=== PATIENT | female | born 1990 | race Caucasian/White ===

== ENCOUNTER 2018-06-02 23:10 | Inpatient (IN) | payer MEDICAID ==
[~2018-06-02] VITALS: Ht 149.9 cm; Wt 70.3 kg
[~2018-06-02 23:10] MED LIST: ONDA4TAB10 PO; OXYC-302 PO
[2018-06-02 23:50] VITALS: BP 133/76
[2018-06-03] MEDS ORDERED: OXYTOCIN 30U/ 0.9% NaCL 500ML 500 ML IV SCH ×2 (01:03→03:54)
[2018-06-03] MEDS ORDERED: LACTATED RINGERS 1,000 ML IV SCH ×3 (01:03→03:54)
[2018-06-03] MEDS ORDERED: OXYTOCIN 30U/ 0.9% NaCL 500ML 500 ML IV ONE (01:03)
[2018-06-03] MEDS ORDERED: OXYTOCIN 30U/ 0.9% NaCL 500ML 500 ML IV PRN (01:03)
[2018-06-03] MEDS ORDERED: OXYTOCIN 30U/ 0.9% NaCL 500ML 500 ML ONE (01:23)
[2018-06-03] MEDS ORDERED: METOCLOPRAMIDE 5 MG/ML, 2ML ONE (01:23)
[2018-06-03] MEDS ORDERED: SODIUM CITRATE/CITRIC ACID 30 ML UDC ONE (01:23)
[2018-06-03] MEDS ORDERED: LACTATED RINGERS 1,000 ML IVBOLUS ONE (01:30)
[2018-06-03] MEDS ORDERED: METOCLOPRAMIDE 5 MG/ML, 2ML IV ONE (01:30)
[2018-06-03] MEDS ORDERED: SODIUM CITRATE/CITRIC ACID 30 ML UDC PO ONE (01:30)
[2018-06-03] MEDS ORDERED: RHOGAM FROM BLOOD BANK 1 NOTE EA IM/IV PRN (01:30)
[2018-06-03 01:33] LABS: BASOPHILS # (AUTO) 0.02 x10^3/uL (0-0.1); BASOPHILS % (AUTO) 0 % (0-1); EOSINOPHILS # (AUTO) 0.04 x10^3/uL (0-0.4); EOSINOPHILS % (AUTO) 0 % (1-7); LYMPHOCYTES # (AUTO) 1.46 x10^3/uL (1-3.4); LYMPHOCYTES % (AUTO) 16 % (22-44); MD NO; MEAN CORPUSCULAR HEMOGLOBIN 31.8 pg (27.0-34.8); MEAN CORPUSCULAR HGB CONC 34.5 g/dL (32.4-35.8); MEAN CORPUSCULAR VOLUME 92.2 fL (80-100); MEAN PLATELET VOLUME 7.8 fL (7.4-10.4); MONOCYTES # (AUTO) 0.34 x10^3/uL (0.2-0.8); MONOCYTES % (AUTO) 4 % (2-9); NEUTROPHILS # (AUTO) 7.31 x10^3/uL (1.8-6.8); NEUTROPHILS % (AUTO) 80 % (42-75); PLATELET COUNT 255 x10^3/uL (130-400); RED BLOOD COUNT 3.79 x10^6/uL (3.82-5.3); RED CELL DISTRIBUTION WIDTH 13.4 % (9.6-15.2)
[2018-06-03 01:44] LABS: AMPHETAMINE SCREEN, URINE Negative (Negative); BARBITURATE SCREEN, URINE Negative (Negative); BENZODIAZEPINE SCREEN, URINE Negative (Negative); CANNABINOID SCREEN, URINE Negative (Negative); COCAINE SCREEN, URINE Negative (Negative); METHADONE SCREEN, URINE Negative (Negative); OPIATE SCREEN, URINE Negative (Negative)
[2018-06-03] MEDS ORDERED: OXYTOCIN 10 UNITS/ML, 1ML ONE (02:00)
[2018-06-03] MEDS ORDERED: SUCCINYLCHOLINE 20 MG/ML, 10ML ONE (02:00)
[2018-06-03] MEDS ORDERED: CEFAZOLIN 1,000 MG ONE (02:00)
[2018-06-03] MEDS ORDERED: PROPOFOL 10 MG/ML, 20ML ONE (02:00)
[2018-06-03] MEDS ORDERED: FENTANYL PF 250 MCG/5ML ONE (02:00)
[2018-06-03] MEDS ORDERED: ONDANSETRON 2MG/ML, 2ML ONE (02:00)
[2018-06-03] MEDS ORDERED: EPHEDRINE 50 MG/ML, 1ML ONE (02:00)
[2018-06-03] MEDS ORDERED: LIDOCAINE-MPF 2% ,5ML ONE (02:00)
[2018-06-03] MEDS ORDERED: PHENYLEPHRINE 10 MG/ML ONE (02:00)
[2018-06-03 02:08] LABS: INTERNATIONAL NORMALIZED RATIO 0.87 (0.93-1.1); PROTHROMBIN TIME 9.3 Seconds (9.6-11.5)
[2018-06-03] MEDS ORDERED: HYDROmorphone 2 MG/ML, 1ML ONE ×2 (02:49→03:49)
[2018-06-03] MEDS ORDERED: FENTANYL PF 100 MCG/2ML ONE ×2 (03:07→03:49)
[2018-06-03] MEDS: LACTATED RINGERS 1,000 ML IV SCH ×3 (03:54→19:54)
[2018-06-03] MEDS ORDERED: MISOPROSTOL 200 MCG TABLET PR PRN (04:00)
[2018-06-03] MEDS ORDERED: morphine SULFATE 10 MG/ML, 1ML IVPush PRN ×2 (04:00)
[2018-06-03] MEDS ORDERED: ACETAMINOPHEN 325 MG TABLET PO PRN (04:00)
[2018-06-03] MEDS ORDERED: OXYcodone/APAP 5/325MG TABLET PO PRN (04:00)
[2018-06-03] MEDS ORDERED: ONDANSETRON 2MG/ML, 2ML IV PRN (04:00)
[2018-06-03] MEDS ORDERED: CARBOPROST TROMETHAMINE 250 MCG/ML, 1ML IM PRN (04:00)
[2018-06-03] MEDS ORDERED: morphine SULFATE 10 MG/ML, 1ML ONE ×2 (06:35→10:06)
[2018-06-03] MEDS: PRENATAL VIT/IRON/FA 1 EACH TABLET PO SCH (09:00)
[2018-06-03] MEDS ORDERED: METHYLERGONOVINE 0.2 MG/ML IM ONE (10:38)
[2018-06-03 12:27] VITALS: BP 117/67
[2018-06-03] MEDS ORDERED: KETOROLAC 30 MG/1 ML ONE ×2 (13:50→20:23)
[2018-06-03 15:20] LABS: BASOPHILS # (AUTO) 0.05 x10^3/uL (0-0.1); BASOPHILS % (AUTO) 1 % (0-1); EOSINOPHILS % (AUTO) 0 % (1-7); LYMPHOCYTES # (AUTO) 1.14 x10^3/uL (1-3.4); LYMPHOCYTES % (AUTO) 12 % (22-44); MD NO; MEAN CORPUSCULAR HEMOGLOBIN 31.4 pg (27.0-34.8); MEAN CORPUSCULAR HGB CONC 34.2 g/dL (32.4-35.8); MEAN CORPUSCULAR VOLUME 91.8 fL (80-100); MEAN PLATELET VOLUME 7.7 fL (7.4-10.4); MONOCYTES # (AUTO) 0.38 x10^3/uL (0.2-0.8); MONOCYTES % (AUTO) 4 % (2-9); NEUTROPHILS # (AUTO) 7.99 x10^3/uL (1.8-6.8); NEUTROPHILS % (AUTO) 84 % (42-75); PLATELET COUNT 228 x10^3/uL (130-400); RED BLOOD COUNT 3.04 x10^6/uL (3.82-5.3); RED CELL DISTRIBUTION WIDTH 13.1 % (9.6-15.2)
[2018-06-03 17:00] VITALS: BP 130/63
[2018-06-03 20:00] VITALS: BP 118/76
[2018-06-03] MEDS: KETOROLAC 30 MG/1 ML IV SCH (20:26)
[2018-06-03] MEDS: SIMETHICONE 80 MG CHEW TAB PO PRN (20:26)
[2018-06-03] MEDS: DOCUSATE 100 MG CAPSULE PO PRN (20:27)
[2018-06-03] MEDS ORDERED: KETOROLAC 30 MG/1 ML IV SCH (23:00)
[2018-06-04 00:35] VITALS: BP 99/65
[2018-06-04] MEDS: SIMETHICONE 80 MG CHEW TAB PO PRN ×3 (02:06→19:48)
[2018-06-04] MEDS: KETOROLAC 30 MG/1 ML IV SCH ×4 (02:07→19:48)
[2018-06-04] MEDS: LACTATED RINGERS 1,000 ML IV SCH (02:55)
[2018-06-04 07:58] VITALS: BP 103/56
[2018-06-04] MEDS ORDERED: IBUP-1222 PO (08:06)
[2018-06-04] MEDS ORDERED: OXYC-302 PO (08:06)
[2018-06-04] MEDS ORDERED: SENN-149 PO (08:10)
[2018-06-04] MEDS: DOCUSATE 100 MG CAPSULE PO PRN ×2 (08:15→19:48)
[2018-06-04] MEDS: PRENATAL VIT/IRON/FA 1 EACH TABLET PO SCH (09:00)
[2018-06-04] MEDS ORDERED: OXYcodone/APAP 5/325MG TABLET PO PRN (10:30)
[2018-06-04] MEDS ORDERED: MEASLES,MUMPS&RUBELLA VACC/PF 0.5 ML SQ-VACC ONE ×2 (11:22→12:00)
[2018-06-04] MEDS ORDERED: DIPH,PERTUSS(ACELL),TET VAC/PF NC IM-VACC ONE (11:30)
[2018-06-04] MEDS: OXYcodone/APAP 5/325MG TABLET PO PRN ×2 (12:33→19:48)
[2018-06-04 12:36] VITALS: BP 113/71
[2018-06-04] MEDS ORDERED: KETOROLAC 30 MG/1 ML ONE (14:26)
[2018-06-04] MEDS: FERROUS GLUCONATE 324 MG TABLET PO SCH (16:02)
[2018-06-04 19:45] VITALS: BP 116/65
[2018-06-05] MEDS: IBUPROFEN 600 MG TABLET PO PRN ×2 (03:36→10:28)
[2018-06-05] MEDS: SIMETHICONE 80 MG CHEW TAB PO PRN ×2 (03:36→07:28)
[2018-06-05] MEDS: FERROUS GLUCONATE 324 MG TABLET PO SCH (07:28)
[2018-06-05] MEDS: PRENATAL VIT/IRON/FA 1 EACH TABLET PO SCH (07:28)
[2018-06-05] MEDS: DOCUSATE 100 MG CAPSULE PO PRN (07:28)
[2018-06-05 08:10] VITALS: BP 121/86
[2018-06-05] MEDS ORDERED: FERR324T8 PO (10:32)
== END 2018-06-05 11:00 | disposition home or self-care (01) | DRG 787 ==
LOC: LDOP 23:10 → LDIP 06-03 01:05 → 2NE 06-03 04:58 → 2NW 06-03 14:40
PROVIDERS: ADMIT Obstetrics & Gynecology; ATTEND Obstetrics & Gynecology
PROC: 10D00Z1 Extraction of Products of Conception, Low, Open Approach (ICD-10-PCS; principal; 2018-06-03)
DX: O34.211 Maternal care for low transverse scar from previous cesarean delivery (principal); O36.4XX0 Maternal care for intrauterine death, not applicable or unspecified; O32.8XX0 Maternal care for other malpresentation of fetus, not applicable or unspecified; Z37.1 Single stillbirth; O62.2 Other uterine inertia; Z3A.23 23 weeks gestation of pregnancy; Z90.49 Acquired absence of other specified parts of digestive tract; Z23 Encounter for immunization
CPT/HCPCS: 36415; 76815; 80307; 85025; 85384; 85610; 85730; 86850; 86900; 88305; 90715; G0378; J0690; J1170; J1885; J2270; J2405; J2704; J3010; J3490; J0330; J2210; J2370; J2590; J2765; J7120